=== PATIENT | male | born 1960 | race Caucasian/White ===

== ENCOUNTER 2018-04-02 11:42 | Emergency (ER) | payer MEDICAID ==
[~2018-04-02] VITALS: Ht 175.3 cm; Wt 80.0 kg
[~2018-04-02 11:42] MED LIST: CIPR-193 PO; FOLI-49 PO; HYDR-762 PO; IBUP800T48 PO; MULT-552 PO; THIA100T10 PO
[2018-04-02 11:51] VITALS: Ht 175.3 cm; Wt 80.0 kg
[2018-04-02] MEDS ORDERED: ONDANSETRON 4 MG INJ IV STA (11:57)
[2018-04-02] MEDS ORDERED: HYDROmorphONE 1 MG/ML SYG IV STA (11:57)
[2018-04-02] MEDS ORDERED: SOD CHLORIDE 0.9% 1,000 ML IV STA (11:57)
[2018-04-02] MEDS ORDERED: SOD CHLORIDE 0.9% 100 ML ONE (12:47)
[2018-04-02] MEDS ORDERED: IOHEXOL 300MG/ML 150 ML BTL ONE (12:47)
[2018-04-02 13:29] VITALS: BP 159/98; PULSE 81; RESP 18
--- NOTE | 2018-04-02 13:43 | ERD ---
ER Documentation Chief Complaint Chief Complaint abdominal pain x 5 days getting worse - hx of hernia HPI This is a 58-year-old male with a chronic right inguinal hernia who is homeless and he is complaining of pain and more swelling to the right inguinal hernia. He has no nausea vomiting or diarrhea. Pain is constant and dull. Denies any fever dysuria or hematuria no scrotal swelling or pain ROS All systems reviewed and are negative except as per history of present illness. Medications Home Meds Discontinued Scripts Folic Acid* (Folic Acid*) 1 Mg Tablet, 1 MG PO DAILY for 30 Days, TAB Prov:LULA LANCASTER S. 12/31/14 Thiamine* (Thiamine*) 100 Mg Tablet, 100 MG PO DAILY for 30 Days, TAB Prov:LULA LANCASTER S. 12/31/14 Multivitamins* (Once Daily*) 1 Tab Tablet, 1 TAB PO DAILY for 30 Days, TAB Prov:LULA LANCASTER S. 12/31/14 Ciprofloxacin Hcl* (Ciprofloxacin Hcl*) 250 Mg Tab, 250 MG PO BID@06,18 for 3 Days Prov:LULA LANCASTER 12/31/14 Ibuprofen* (Motrin*) 800 Mg Tab, 800 MG PO Q6, #10 TAB Prov:BRIDGET CHERRY MD 12/29/14 Hydrocodone Bit-Acetaminophen* ([place]*) 10-325 Mg Tablet, 1 TAB PO Q6 PRN for PAIN, #10 TAB Prov:BRIDGET CHERRY MD 12/29/14 Allergies Allergies: Coded Allergies: No Known Allergy (Verified , 04/02/18) PMhx/Soc History of Surgery: No Anesthesia Reaction: No Hx Neurological Disorder: No Hx Respiratory Disorders: No Hx Cardiac Disorders: No Hx Psychiatric Problems: No Hx Miscellaneous Medical Probl: Yes (s/p accident; hernia) Hx Alcohol Use: Yes Hx Substance Use: Yes Hx Tobacco Use: Yes Smoking Status: Current every day smoker FmHx Family History: No coronary disease Physical Exam Vitals Vital Signs Date Temp Pulse Resp B/P (MAP) Pulse Ox O2 O2 Flow FiO2 Time Delivery Rate 04/02/18 81 18 159/98 100 Room Air 13:29 (118) 04/02/18 98.4 90 24 162/100 97 11:51 (120) Physical Exam Const: Well-developed, well-nourished Head: Atraumatic, normocephalic Eyes: Normal Conjunctiva, PERRLA, EOMI, normal sclera, no nystagmus ENT: Normal External Ears, Nose and Mouth, moist mucus membranes. Neck: Full range of motion. No meningismus, no lymphadenopathy. Resp: Clear to auscultation bilaterally, no wheezing, rhonchi, rales Cardio: Regular rate and rhythm, no murmurs, S1 S2 present Abd: Soft, non tender x 4, non distended. Normal bowel sounds, no guarding or rebound, no pulsitile abdominal masses or bruits, there is a large right inguinal hernia with some tenderness but cannot assess because the patient is quite histrionic when you try to examine him Skin: No petechiae or rashes, no ecchymosis , no maculopapular rash Back: No midline or flank tenderness Ext: No cyanosis, or edema, FROM x 4, normal inspection, neurovascularly intact x 4 Neur: Awake and alert, STR 5/5 x 4, sensation intact x 4, no focal findings, cerebellum intact Psych: Normal Mood and Affect Result Diagram: 04/02/18 1205 04/02/18 1205 Results 24 hrs Laboratory Tests Test 04/02/18 12:05 White Blood Count 9.5 10^3/ul Red Blood Count 4.27 10^6/ul Hemoglobin 12.8 g/dl Hematocrit 37.8 % Mean Corpuscular Volume 88.5 fl Mean Corpuscular Hemoglobin 30.0 pg Mean Corpuscular Hemoglobin Concent 33.9 g/dl Red Cell Distribution Width 13.2 % Platelet Count 451 10^3/UL Mean Platelet Volume 8.9 fl Immature Granulocytes % 0.200 % Neutrophils % 59.1 % Lymphocytes % 29.4 % Monocytes % 8.2 % Eosinophils % 2.5 % Basophils % 0.6 % Nucleated Red Blood Cells % 0.0 /100WBC Immature Granulocytes # 0.020 10^3/ul Neutrophils # 5.6 10^3/ul Lymphocytes # 2.8 10^3/ul Monocytes # 0.8 10^3/ul Eosinophils # 0.2 10^3/ul Basophils # 0.1 10^3/ul Nucleated Red Blood Cells # 0.0 10^3/ul Sodium Level 140 mmol/L Potassium Level 3.5 mmol/L Chloride Level 101 mmol/L Carbon Dioxide Level 24 mmol/L Anion Gap 15 Blood Urea Nitrogen 10 mg/dl Creatinine 0.91 mg/dl Est Glomerular Filtrat Rate mL/min > 60 mL/min Glucose Level 95 mg/dl Calcium Level 9.1 mg/dl Total Bilirubin 0.1 mg/dl Direct Bilirubin 0.00 mg/dl Indirect Bilirubin 0.1 mg/dl Aspartate Amino Transf (AST/SGOT) 26 IU/L Alanine Aminotransferase (ALT/SGPT) 20 IU/L Alkaline Phosphatase 67 IU/L Total Protein 7.4 g/dl Albumin 4.0 g/dl Globulin 3.40 g/dl Albumin/Globulin Ratio 1.17 Current Medications Medications Dose Sig/Alison Start Time Status Last (Trade) Ordered Route PRN Stop Time Admin Dose Reason Admin Sodium 1,000 ml @ Q1H STAT 04/02/18 DC 04/02/18 Chloride 1,000 mls/hr IV 11:57 12:12 04/02/18 12:56 1 mg ONCE STAT 04/02/18 DC 04/02/18 Hydromorphone IV 11:57 12:11 HCl 04/02/18 11:58 (Dilaudid) Ondansetron 4 mg ONCE STAT 04/02/18 DC 04/02/18 HCl (Zofran IV 11:57 12:11 Inj) 04/02/18 11:58 IV Flush 10 ml STK-MED 04/02/18 DC 04/02/18 (NS 10 ml) ONCE .ROUTE 12:47 13:00 04/02/18 12:48 Sodium 100 ml @ ud STK-MED 04/02/18 DC 04/02/18 Chloride ONCE .ROUTE 12:47 13:00 04/02/18 12:48 Iohexol 150 ml STK-MED 04/02/18 DC 04/02/18 (Omnipaque ONCE .ROUTE 12:47 13:00 300mg/ ml) 04/02/18 12:48 Procedures/MDM AMENDMENT: 04/02/2018 1:30:06 PM aFreed Najera M.d Addendum: No abdominal wall hernia is seen. There is ill-defined soft tissue within the right inguinal ring which does not contain bowel. This may represent evidence of prior herniorrhaphy. PROCEDURE: CT abdomen and pelvis with contrast. CLINICAL INDICATION: Abdominal pain. Hernia. TECHNIQUE: CT scan of the abdomen and pelvis without oral contrast was performed and is reconstructed at 2.5 mm contiguous axial intervals from the do me of the diaphragm to the inferior pubic rami.. The patient was scanned with intravenous contrast. Sagittal and coronal reformatted images were obtained from the axial source images. The calculated radiation dose measures 295 mGy centimeters. The CTDI measures 5.1 mGy. Individualized dose optimization technique was used for the performance of this exam. This included 1. Automated exposure control. 2. Adjustment of the mA and / or kV according to the patient's size. 3. Use of iterative reconstructed technique. COMPARISON: None. FINDINGS: The lung bases are clear of any infiltrate or nodule. No effusion is seen. The liver is of normal size, contour and attenuation with no mass or ductal dilatation. No gallstones are visualized. No splenic, adrenal or pancreatic abnormalities present. Kidneys enhance symmetrically and are of normal size and contour. No hydronephrosis, calculus or masses seen. Ureters are of normal course and caliber with no stone. No bladder mass or stone is present. Prostate and seminal vesicles are normal. There is a right scrotal hydrocele. There is no aneurysm. No adenopathy is present. No bowel mass or obstruction is present. The appendix is normal. No phlegmon, ascites or pneumoperitoneum is visualized. Mild senescent degenerative changes are seen in the lower lumbar spine. IMPRESSION: No evidence of urolithiasis, obstructive uropathy, diverticulitis or appendicitis. Mild senescent degenerative changes lumbar spine. Right scrotal hydrocele. .Fareed Najera MD, MD Date Time Electronically viewed and signed by .Fareed Najera MD, MD on 04/02/2018 13: 30 .A/ CC: LILIA WRIGHT DO [id number] No evidence of bowel obstruction. Patient discharged home to follow-up with general surgery Departure Diagnosis: Primary Impression: Inguinal hernia Obstruction and gangrene presence: without obstruction or gangrene Laterality: unilateral Recurrence: recurrent Qualified Codes: K40.91 - Unilateral inguinal hernia, without obstruction or gangrene, recurrent Additional Impression: Hydrocele Hydrocele type: unspecified Qualified Codes: N43.3 - Hydrocele, unspec ified Condition: Stable LILIA WRIGHT DO Apr 02, 2018 13:43
[2018-04-02] MEDS ORDERED: HYDR-4011 PO (13:44)
== END 2018-04-02 14:06 | disposition home or self-care (01) ==
LOC: E/R 11:42
DX: K40.91 Unilateral inguinal hernia, without obstruction or gangrene, recurrent (principal); N43.3 Hydrocele, unspecified; F17.210 Nicotine dependence, cigarettes, uncomplicated
CPT/HCPCS: 36415; 74177; 80053; 85025; 96374; 96375; J1170; J2405; J7030; Q9967; Z7502; Z7610